=== PATIENT | female | born 1985 | race Caucasian/White ===

== ENCOUNTER 2017-02-12 13:33 | Inpatient (IN) | payer OTHER ==
--- NOTE | 2017-02-12 14:41 | C.PDOC ---
History Of Present Illness 31-year-old female, presents to the emergency department accompanied by mom ( acting as historian) with complaints of rash. Patient states she was prescribed a course of Bactrim for recent infection, that she has been taking x9 days. Yesterday, patient developed a diffuse itchy rash to back, abdomen and extremities. Patient was given Benadryl and Tylenol at 06:30 this morning, resulting in her being brought to the ED for evaluation. No vomiting, diarrhea, weakness, change in baseline mental status, change in bowel habits, symptoms , shortness of breath, or any other associated symptoms. No other complaints at this time. Time Seen by Provider: 02/12/17 14:02 Chief Complaint (Nursing): Fever History Per: Patient, Family History/Exam Limitations: no limitations Onset/Duration Of Symptoms: Days Current Symptoms Are (Timing): Still Present Severity: Moderate Past Medical History Reviewed: Historical Data, Nursing Documentation, Vital Signs Vital Signs: Last Vital Signs Temp 98.6 F 02/13/17 08:00 Pulse 92 H 02/13/17 08:00 Resp 20 02/13/17 08:00 BP 99/63 L 02/13/17 08:00 Pulse Ox 100 02/13/17 08:00 - Medical History PMH: Hypercholesterolemia Denies: Chronic Kidney Disease Family History: States: Unknown Family Hx - Social History Hx Alcohol Use: No Hx Substance Use: No - Immunization History Hx Tetanus Toxoid Vaccination: No Hx Influenza Vaccination: Yes (09/2015) Hx Pneumococcal Vaccination: No Review Of Systems Except As Marked, All Systems Reviewed And Found Negative. Constitutional: Negative for: Fever, Chills Cardiovascular: Negative for: Chest Pain, Palpitations Respiratory: Negative for: Shortness of Breath Gastrointestinal: Negative for: Nausea, Vomiting, Abdominal Pain, Diarrhea Musculoskeletal: Negative for: Back Pain Skin: Positive for: Rash Neurological: Negative for: Weakness, Numbness, Headache, Dizziness Physical Exam - Physical Exam Appears: Non-toxic, No Acute Distress Skin: Warm, Dry, Rash (DIFFUSE ERYTHEMATOUS RASH TO BACK, ABDOMEN AND EXTREMITIES. BLANCHING, MACULAR, SPARING THE SOLES AND PALMS.) Head: Atraumatic, Normacephalic Eye(s): bilateral: Normal Inspection, PERRL Nose: Normal Oral Mucosa: Moist Lips: Normal Appearing Throat: Normal (no airway compromise.) Neck: Normal ROM Cardiovascular: Rhythm Regular Respiratory: Normal Breath Sounds, No Accessory Muscle Use Extremity: Normal ROM ED Course And Treatment - Laboratory Results Result Diagrams: 02/12/17 16:04 02/12/17 16:04 O2 Sat by Pulse Oximetry: 97 Disposition - Disposition Disposition: HOSPITALIZED Disposition Time: 18:54 Condition: STABLE - Clinical Impression Clinical Impression: Pneumonia, Rash - Scribe Statement The provider has reviewed the documentation as recorded by the Ike Louise All medical record entries made by the Ike were at my direction and personally dictated by me. I have reviewed the chart and agree that the record accurately reflects my personal performance of the history, physical exam, medical decision making, and the department course for this patient. I have also personally directed, reviewed, and agree with the discharge instructions and disposition.
[2017-02-12] MEDS ORDERED: Sodium Chloride 0.9% 1,000 ML IV ONE ×2 (14:50→17:33)
--- NOTE | 2017-02-12 15:36 | RAD ---
HISTORY: fever, URI COMPARISON: No prior. FINDINGS: LUNGS: Mild hazy opacity in the left lung base. PLEURA: No significant pleural effusion identified, no pneumothorax apparent. CARDIOVASCULAR: Normal. OSSEOUS STRUCTURES: No significant abnormalities. VISUALIZED UPPER ABDOMEN: Normal. OTHER FINDINGS: None. IMPRESSION: Mild hazy opacity in the left lung base.
[2017-02-12 16:08] LABS: BASO % 0.6 % (0.0-2.0); EOS # 0.9 K/uL (0.0-0.7); HEMATOCRIT 44.2 % (34.0-47.0); LYMPH # 0.6 K/uL (1.0-4.3); LYMPH % 8.1 % (20.0-40.0); MEAN CELL VOLUME 86.4 fL (81.0-99.0); MEAN CORPUSCULAR HEMOGLOBIN 28.5 pg (27.0-31.0); MEAN CORPUSCULAR HGB CONC 32.9 g/dL (33.0-37.0); MEAN PLATELET VOLUME 7.9 fL (7.2-11.7); MONO # 0.2 K/uL (0.0-0.8); MONO % 2.4 % (0.0-10.0); PLATELET COUNT 280 K/uL (130-400); RED CELL DISTRIBUTION WIDTH 15.1 % (11.5-14.5); WHITE BLOOD COUNT 7.4 K/uL (4.8-10.8)
[2017-02-12 16:20] LABS: CHLORIDE 98 mmol/L (98-107); POTASSIUM 4.2 mmol/L (3.6-5.2); SODIUM 137 mmol/L (132-148)
[2017-02-12 16:22] LABS: BILIRUBIN,TOTAL 0.2 mg/dL (0.2-1.3); GFR AFRICAN-AMERICAN > 60
[2017-02-12 16:23] LABS: ALB/GLOB RATIO 1.1 (1.0-2.1); ALKALINE PHOSPHATASE 72 U/L (38-126); ALT/SGPT 25 U/L (9-52); AST/SGOT 23 U/L (14-36); BLOOD UREA NITROGEN 10 mg/dL (7-17); CALCIUM 8.5 mg/dl (8.6-10.4); CARBON DIOXIDE 22 mmol/L (22-30); GLUCOSE,RANDOM 124 mg/dL (65-105); TOTAL PROTEIN 7.6 g/dL (6.3-8.3)
[2017-02-12 18:20] LABS: EOSINOPHIL 14 % (0-4); NEUTROPHIL 66 % (50-75); TOTAL CELLS COUNTED 100
[2017-02-12 18:22] LABS: LARGE PLATELETS PRESENT
[2017-02-12] MEDS ORDERED: Azithromycin 500 MG in Sodium Chloride 0.9% 250 ML IVPB STA (18:40)
[2017-02-12] MEDS ORDERED: guaiFENesin 200 mg/10 ml Syrup UD PO PRN (18:53)
[2017-02-12] MEDS ORDERED: cefTRIAXone IV 1 gm in Dextros 50 ML IVPB ONE (19:04)
[2017-02-12] MEDS ORDERED: Azithromycin 500mg/250ML NS 250 ML IVPB ONE (19:04)
[2017-02-12 19:17] LABS: URINE BILIRUBIN NEGATIVE (NEGATIVE); URINE COLOR Straw (YELLOW); URINE GLUCOSE (UA) NORMAL (Normal); URINE KETONE TRACE mg/dL (NEGATIVE); URINE LEUKOCYTE ESTERASE NEG Leu/uL (Negative); URINE PROTEIN NEGATIVE (NEGATIVE); URINE UROBILINOGEN NORMAL mg/dL (0.2-1.0); WBC URINE 1 /hpf (0-5)
[2017-02-12 19:18] LABS: URINE BLOOD NEGATIVE (NEGATIVE)
[2017-02-12] MEDS: Azithromycin 500 MG in Sodium Chloride 0.9% 250 ML IVPB SCH (19:27)
[2017-02-12 19:33] LABS: VENOUS BLOOD GAS BASE EXCESS -6.3 mmol/L (0.0-2.0); VENOUS BLOOD GAS PCO2 32 mmHg (40-60); VENOUS BLOOD PH 7.36 (7.32-7.43)
[2017-02-12 20:08] LABS: LEGIONELLA AG URINE NEGATIVE (NEGATIVE)
[2017-02-12] MEDS ORDERED: Albuterol 0.083% Inhal Sol (2.5 mg/3 mL) UD ONE (20:16)
[2017-02-12] MEDS: Albuterol 0.083% Inhal Sol (2.5 mg/3 mL) UD INH SCH (20:55)
--- NOTE | 2017-02-13 00:32 | CP.PCM.HP ---
History of Present Illness - History of Present Illness History of Present Illness: Danay complain: cough and fever x 8 days HPI: 31-year-old female who has h/o cerebral palsy and is dependent on her mother for ADL, presents to the emergency department accompanied by mom (acting as historian) with complaints of rash after she was given bactrim by E.N.t specialist she c/o fever, cough, genralized weakness Patient states she was prescribed a course of Bactrim for recent infection, that she has been taking x9 days. Yesterday, patient developed a diffuse itchy rash to back, abdomen and extremities. Patient was given Benadryl and Tylenol at 06:30 this morning, resulting in her being brought to the ED for evaluation. No vomiting, diarrhea, weakness, change in baseline mental status, change in bowel habits, symptoms , shortness of breath, or any other associated symptoms. No other complaints at this time Review of Systems - Review of Systems Systems not reviewed;Unavailable: Acuity of Condition - Constitutional Constitutional: Chills, Fatigue, Fever, Lethargy - EENT Eyes: absent: As Per HPI, Blind Spots, Blurred Vision, Change in Vision, Decreased Night Vision, Diplopia, Discharge, Dry Eye, Exophthalmos, Floaters, Irritation, Itchy Eyes, Loss of Peripheral Vision, Pain, Photophobia, Requires Corrective Lenses, Sees Flashes, Spots in Vision, Tunnel Vision, Other Visual Disturbances, Loss of Vision, Other Ears: absent: As Per HPI, Decreased Hearing, Ear Discharge, Ear Pain, Tinnitus, Abnormal Hearing, Disequilibrium, Dizziness, Other Nose/Mouth/Throat: absent: As Per HPI, Epistaxis, Nasal Congestion, Nasal Discharge, Nasal Obstruction, Nasal Trauma, Nose Pain, Post Nasal Drip, Sinus Pain, Sinus Pressure, Bleeding Gums, Change in Voice, Dental Pain, Dry Mouth, Dysphagia, Halitosis, Hoarsness, Lip Swelling, Mouth Lesions, Mouth Pain, Odynophagia, Sore Throat, Throat Swelling, Tongue Swelling, Facial Pain, Neck Pain, Neck Mass, Other - Cardiovascular Cardiovascular: absent: As Per HPI, Acrocyanosis, Chest Pain, Chest Pain at Rest , Chest Pain with Activity, Claudication, Diaphoresis, Dyspnea, Dyspnea on Exertion, Edema, Irregular Heart Rhythm, Pain Radiating to Arm/Neck/Jaw, Leg Edema, Leg Ulcers, Lightheadedness, Orthopnea, Palpitations, Paroxysmal Nocturnal Dyspnea, Pedal Edema, Radiating Pain, Rapid Heart Rate, Slow Heart Rate, Syncope, Other - Respiratory Respiratory: absent: As Per HPI, Cough, Dyspnea, Hemoptysis, Dyspnea on Exertion , Wheezing, Snoring, Stridor, Pain on Inspiration, Chest Congestion, Excessive Mucous Production, Change in Mucous Color, Pain with Coughing, Other - Gastrointestinal Gastrointestinal: absent: As Per HPI, Abdominal Pain, Belching, Bloating, Change in Bowel Habits, Change in Stool Character, Coffee Ground Emesis, Constipation, Cramping, Diarrhea, Dyspepsia, Dysphagia, Early Satiety, Excessive Flatus, Fecal Incontinence, Heartburn, Hematemesis, Hematochezia, Loose Stools, Melena, Nausea, Odynophagia, Temesmus, Vomiting, Other - Musculoskeletal Musculoskeletal: Muscle Weakness, Stiffness - Neurological Neurological: absent: As Per HPI, Abnormal Gait, Abnormal Hearing, Abnormal Movements, Abnormal Speech, Behavioral Changes, Burning Sensations, Confusion, Convulsions, Disequilibrium, Dizziness, Numbness, Focal Weakness, Frequent Falls , Headaches, Lack of Coordination, Loss of Vision, Memory Loss, Paresthesias, Radicular Pain, Restless Legs, Sensory Deficit, Syncope, Tingling, Tremor, Vertigo, Weakness, Other Visual Disturbances, Other - Psychiatric Psychiatric: absent: As Per HPI, Abnormal Sleep Pattern, Anhedonia, Anxiety, Auditory Hallucinations, Behavioral Changes, Change in Appetite, Change in Libido, Confusion, Depression, Difficulty Concentrating, Hallucinations, Homicidal Ideation, Hopelessness, Irritability, Memory Loss, Mood Swings, Panic Attacks, Paranoia, Suicidal Ideation, Visual Hallucinations, Tactile Hallucinations, Other Past Patient History - Past Medical History & Family History Past Medical History?: Yes - Past Social History Smoking Status: Never Smoked - CARDIAC Hx Hypercholesterolemia: Yes - PULMONARY Hx Respiratory Disorders: No - NEUROLOGICAL Hx Neurological Disorder: No - HEENT Hx HEENT Problems: Yes Other/Comment: chronic tonsilitis - RENAL Hx Chronic Kidney Disease: No - ENDOCRINE/METABOLIC Hx Endocrine Disorders: No - HEMATOLOGICAL/ONCOLOGICAL Hx Blood Disorders: No - INTEGUMENTARY Hx Dermatological Problems: No - MUSCULOSKELETAL/RHEUMATOLOGICAL Hx Musculoskeletal Disorders: No Hx Falls: No - GASTROINTESTINAL Hx Gastrointestinal Disorders: No - GENITOURINARY/GYNECOLOGICAL Hx Genitourinary Disorders: No - PSYCHIATRIC Hx Substance Use: No Other/Comment: mental retardation - SURGICAL HISTORY Hx Surgeries: Yes Hx Tonsillectomy: Yes - ANESTHESIA Hx Anesthesia: No Hx Anesthesia Reactions: No Hx Malignant Hyperthermia: No Meds Allergies/Adverse Reactions: Allergies Allergy/AdvReac Type Severity Reaction Status Date / Time sulfamethoxazole Allergy RASH Verified 02/12/17 18:53 [From Bactrim] trimethoprim [From Bactrim] Allergy RASH Verified 02/12/17 18:53 Physical Exam - Constitutional Appears: No Acute Distress - Eye Exam Eye Exam: EOMI, Normal appearance, PERRL Pupil Exam: NORMAL ACCOMODATION, PERRL - Respiratory Exam Respiratory Exam: Clear to Auscultation Bilateral, NORMAL BREATHING PATTERN - Cardiovascular Exam Cardiovascular Exam: REGULAR RHYTHM - GI/Abdominal Exam GI & Abdominal Exam: Normal Bowel Sounds, Soft. absent: Tenderness - Neurological Exam Neurological exam: Alert - Psychiatric Exam Psychiatric exam: Normal Affect, Normal Mood - Skin Skin Exam: Rash Additional comments: extensive erythmetous maculopapular rash all over the body Results - Vital Signs Recent Vital Signs: Last Vital Signs Temp 98.8 F 02/12/17 21:13 Pulse 105 H 02/12/17 20:55 Resp 17 02/12/17 20:40 BP 99/45 L 02/12/17 20:40 Pulse Ox 98 02/12/17 20:40 - Labs Result Diagrams: 02/12/17 16:04 02/12/17 16:04 Labs: Laboratory Results - last 24 hr 02/12/17 02/12/17 02/12/17 19:00 19:11 19:20 pO2 90 H VBG pH 7.36 VBG pCO2 32 L VBG HCO3 20.0 VBG Total CO2 19.1 L VBG O2 Sat (Calc) 97.9 H VBG Base Excess -6.3 L VBG Potassium 3.6 Sodium 134.0 Chloride 106.0 Glucose 115 H Lactate 1.0 Venous Blood Potassium 3.6 Urine Color Straw Urine Clarity Clear Urine pH 5.0 Ur Specific [place] 1.005 Urine Protein Negative Urine Glucose (UA) Normal Urine Ketones Trace Urine Blood Negative Urine Nitrate Negative Urine Bilirubin Negative Urine Urobilinogen Normal Ur Leukocyte Esterase Neg Urine WBC (Auto) 1 Ur Squamous Epith Cells < 1 Infectious [place] Assay Negative Ur L.pneumophila Ag Negative Mycoplasma pneumon IgM Negative Assessment & Plan (1) Pneumonia Assessment and Plan: rule out left lower lobe pneumonia admit pt seen & examined detaild orders written Status: Acute (2) Rash Assessment and Plan: more likely reaction to bactrim Status: Acute
[2017-02-13] MEDS: Albuterol 0.083% Inhal Sol (2.5 mg/3 mL) UD INH SCH ×4 (01:19→21:46)
--- NOTE | 2017-02-13 13:19 | RAD ---
HISTORY: opacity on portable COMPARISON: 02/12/2027 TECHNIQUE: PA and lateral chest views. FINDINGS: LUNGS: Hazy opacity at left lung base persists. Likely lower lobe. Possible early pneumonia. Followup advised. No other abnormal pulmonary opacity elsewhere. PLEURA: No significant pleural effusion identified. No pneumothorax apparent. CARDIOVASCULAR: Normal. OSSEOUS STRUCTURES: No significant abnormalities. VISUALIZED UPPER ABDOMEN: Normal. OTHER FINDINGS: None. IMPRESSION: Left basilar opacity persists. Possible early lower lobe pneumonia. Followup advised.
[2017-02-13] MEDS: Azithromycin 500 MG in Sodium Chloride 0.9% 250 ML IVPB SCH (18:37)
[2017-02-14] MEDS: Albuterol 0.083% Inhal Sol (2.5 mg/3 mL) UD INH SCH ×4 (01:19→20:06)
[2017-02-14] MEDS: Patient's Own Medication - Tablet/Capusle PO SCH (09:37)
[2017-02-14 10:45] LABS: MEAN CORPUSCULAR HGB CONC 32.7 g/dL (33.0-37.0); MEAN PLATELET VOLUME 7.8 fL (7.2-11.7)
[2017-02-14 10:47] LABS: CHLORIDE 101 mmol/L (98-107); POTASSIUM 3.1 mmol/L (3.6-5.2); SODIUM 140 mmol/L (132-148)
[2017-02-14 10:50] LABS: BLOOD UREA NITROGEN 5 mg/dL (7-17); CALCIUM 8.2 mg/dl (8.6-10.4); CARBON DIOXIDE 21 mmol/L (22-30); GFR AFRICAN-AMERICAN > 60; GLUCOSE,RANDOM 106 mg/dL (65-105); HEMATOCRIT 36.8 % (34.0-47.0); MEAN CELL VOLUME 86.5 fL (81.0-99.0); MEAN CORPUSCULAR HEMOGLOBIN 28.8 pg (27.0-31.0); RED CELL DISTRIBUTION WIDTH 14.9 % (11.5-14.5); WHITE BLOOD COUNT 6.3 K/uL (4.8-10.8)
[2017-02-14] MEDS: Potassium Chloride 20 mEq ER Tab PO SCH (17:25)
[2017-02-14] MEDS: Azithromycin 500 MG in Sodium Chloride 0.9% 250 ML IVPB SCH (19:25)
--- NOTE | 2017-02-14 23:32 | CP.PCM.PN ---
Subjective - Date & Time of Evaluation Date of Evaluation: 02/13/17 - Subjective Subjective: pT seen and evaluated at bedside, extensive erythmetous rash, getting better, she is coughing and c/o headache Objective - Vital Signs/Intake and Output Vital Signs (last 24 hours): Temp Pulse Resp BP Pulse Ox 97.9 F 113 H 20 126/79 96 02/14/17 16:45 02/14/17 16:45 02/14/17 16:45 02/14/17 16:45 02/14/17 16:45 Intake and Output: 02/14/17 02/15/17 18:59 06:59 Intake Total 500 850 Balance 500 850 - Medications Medications: Current Medications Acetaminophen (Tylenol 325mg Tab) 650 mg PO Q4 PRN PRN Reason: Fever >100.4 F Last Admin: 02/14/17 01:05 Dose: 650 mg Albuterol Sulfate (Albuterol 0.083% Inhal Kendra (2.5 Mg/3 Ml) Ud) 2.5 mg INH RQ6 [facility] Last Admin: 02/14/17 20:06 Dose: 2.5 mg Diphenhydramine HCl (Benadryl) 25 mg PO TID PRN PRN Reason: Itching / Pruritus Last Admin: 02/14/17 17:25 Dose: 25 mg Guaifenesin (Robitussin) 200 mg PO Q4H PRN PRN Reason: Cough and congestion Last Admin: 02/13/17 10:58 Dose: 200 mg Home Med (Patient's Own Medication) 1 tab PO DAILY [facility] Last Admin: 02/14/17 09:37 Dose: 1 tab Azithromycin 500 mg/ Sodium (Chloride) 250 mls @ 250 mls/hr IVPB Q24H [facility] Last Admin: 02/14/17 19:25 Dose: 250 mls/hr Ceftriaxone Sodium 1 gm/ (Sodium Chloride) 100 mls @ 100 mls/hr IVPB DAILY [facility] Last Admin: 02/14/17 09:40 Dose: 100 mls/hr Influenza Virus Vaccine (Afluria) 45 mcg IM .ONCE ONE Stop: 02/15/17 10:01 Lorazepam (Ativan) 0.5 mg PO BID PRN PRN Reason: Anxiety Last Admin: 02/13/17 20:51 Dose: 0.5 mg Methylphenidate HCl (Ritalin) 10 mg PO DAILY [facility] Last Admin: 02/14/17 09:14 Dose: 10 mg Pneumococcal Polyvalent Vaccine (Pneumovax 23 Vaccine) 0.5 ml IM .ONCE ONE Stop: 02/15/17 10:01 Potassium Chloride (K-Dur 20 Meq Er Tab) 40 meq PO DAILY [facility] Stop: 02/17/17 17:15 Last Admin: 02/14/17 17:25 Dose: 40 meq Topiramate (Topamax) 50 mg PO DAILY [facility] Last Admin: 02/14/17 09:31 Dose: 50 mg - Labs Labs: 02/14/17 10:31 02/14/17 10:31 - Constitutional Appears: No Acute Distress, Agitated - Head Exam Head Exam: ATRAUMATIC, NORMAL INSPECTION, NORMOCEPHALIC - Eye Exam Eye Exam: EOMI, Normal appearance, PERRL Pupil Exam: NORMAL ACCOMODATION, PERRL - ENT Exam ENT Exam: Mucous Membranes Moist, Normal Exam - Respiratory Exam Respiratory Exam: Decreased Breath Sounds, Rales, Rhonchi - Cardiovascular Exam Cardiovascular Exam: REGULAR RHYTHM, +S1, +S2. absent: Murmur - GI/Abdominal Exam GI & Abdominal Exam: Soft, Normal Bowel Sounds. absent: Tenderness - Neurological Exam Neurological Exam: Alert, Awake, CN II-XII Intact, Normal Gait, Oriented x3 - Psychiatric Exam Psychiatric exam: Agitated, Anxious - Skin Skin Exam: Erythema, Rash Assessment and Plan (1) Pneumonia Status: Acute (2) Rash Status: Acute (3) ADHD (attention deficit hyperactivity disorder) Status: Acute
--- NOTE | 2017-02-14 23:34 | CP.PCM.PN ---
Subjective - Date & Time of Evaluation Date of Evaluation: 02/14/17 - Subjective Subjective: Pt seen & examined at bedside, is improving, rash is getting better, less cough feeling better Objective - Vital Signs/Intake and Output Vital Signs (last 24 hours): Temp Pulse Resp BP Pulse Ox 97.9 F 113 H 20 126/79 96 02/14/17 16:45 02/14/17 16:45 02/14/17 16:45 02/14/17 16:45 02/14/17 16:45 Intake and Output: 02/14/17 02/15/17 18:59 06:59 Intake Total 500 850 Balance 500 850 - Medications Medications: Current Medications Acetaminophen (Tylenol 325mg Tab) 650 mg PO Q4 PRN PRN Reason: Fever >100.4 F Last Admin: 02/14/17 01:05 Dose: 650 mg Albuterol Sulfate (Albuterol 0.083% Inhal Kendra (2.5 Mg/3 Ml) Ud) 2.5 mg INH RQ6 [facility] Last Admin: 02/14/17 20:06 Dose: 2.5 mg Diphenhydramine HCl (Benadryl) 25 mg PO TID PRN PRN Reason: Itching / Pruritus Last Admin: 02/14/17 17:25 Dose: 25 mg Guaifenesin (Robitussin) 200 mg PO Q4H PRN PRN Reason: Cough and congestion Last Admin: 02/13/17 10:58 Dose: 200 mg Home Med (Patient's Own Medication) 1 tab PO DAILY [facility] Last Admin: 02/14/17 09:37 Dose: 1 tab Azithromycin 500 mg/ Sodium (Chloride) 250 mls @ 250 mls/hr IVPB Q24H [facility] Last Admin: 02/14/17 19:25 Dose: 250 mls/hr Ceftriaxone Sodium 1 gm/ (Sodium Chloride) 100 mls @ 100 mls/hr IVPB DAILY [facility] Last Admin: 02/14/17 09:40 Dose: 100 mls/hr Influenza Virus Vaccine (Afluria) 45 mcg IM .ONCE ONE Stop: 02/15/17 10:01 Lorazepam (Ativan) 0.5 mg PO BID PRN PRN Reason: Anxiety Last Admin: 02/13/17 20:51 Dose: 0.5 mg Methylphenidate HCl (Ritalin) 10 mg PO DAILY [facility] Last Admin: 02/14/17 09:14 Dose: 10 mg Pneumococcal Polyvalent Vaccine (Pneumovax 23 Vaccine) 0.5 ml IM .ONCE ONE Stop: 02/15/17 10:01 Potassium Chloride (K-Dur 20 Meq Er Tab) 40 meq PO DAILY [facility] Stop: 02/17/17 17:15 Last Admin: 02/14/17 17:25 Dose: 40 meq Topiramate (Topamax) 50 mg PO DAILY [facility] Last Admin: 02/14/17 09:31 Dose: 50 mg - Labs Labs: 02/14/17 10:31 02/14/17 10:31 - Constitutional Appears: No Acute Distress - Head Exam Head Exam: ATRAUMATIC, NORMAL INSPECTION, NORMOCEPHALIC - Eye Exam Eye Exam: EOMI, Normal appearance, PERRL Pupil Exam: NORMAL ACCOMODATION, PERRL - Respiratory Exam Respiratory Exam: Clear to Ausculation Bilateral, NORMAL BREATHING PATTERN - Cardiovascular Exam Cardiovascular Exam: REGULAR RHYTHM, +S1, +S2. absent: Murmur - GI/Abdominal Exam GI & Abdominal Exam: Soft, Normal Bowel Sounds. absent: Tenderness Assessment and Plan (1) Pneumonia Status: Acute (2) Rash Status: Acute (3) ADHD (attention deficit hyperactivity disorder) Status: Acute
[2017-02-15] MEDS: Albuterol 0.083% Inhal Sol (2.5 mg/3 mL) UD INH SCH ×4 (01:10→19:06)
[2017-02-15] MEDS ORDERED: Pneumococcal 23-Valent Vaccine IM ONE (10:00)
[2017-02-15] MEDS ORDERED: Influenza Virus Vaccine 45 mcg/0.5 ml Syr IM ONE (10:00)
[2017-02-15] MEDS: Potassium Chloride 20 mEq ER Tab PO SCH (10:13)
[2017-02-15] MEDS: Patient's Own Medication - Tablet/Capusle PO SCH (10:13)
[2017-02-15 12:33] LABS: CHLORIDE 100 mmol/L (98-107); POTASSIUM 3.5 mmol/L (3.6-5.2); SODIUM 140 mmol/L (132-148)
[2017-02-15 12:36] LABS: BLOOD UREA NITROGEN 8 mg/dL (7-17); CARBON DIOXIDE 24 mmol/L (22-30); GFR AFRICAN-AMERICAN > 60
[2017-02-15 12:37] LABS: CALCIUM 8.2 mg/dl (8.6-10.4); GLUCOSE,RANDOM 105 mg/dL (65-105)
[2017-02-15] MEDS ORDERED: Potassium Chloride 20 mEq ER Tab PO ONE (17:15)
[2017-02-15] MEDS: Azithromycin 500 MG in Sodium Chloride 0.9% 250 ML IVPB SCH (18:34)
--- NOTE | 2017-02-15 22:22 | CP.PCM.PN ---
Subjective - Date & Time of Evaluation Date of Evaluation: 02/15/17 - Subjective Subjective: Pt seen & evaluated , she is improving, rash is getting better, less cough and states she is feeling better Objective - Vital Signs/Intake and Output Vital Signs (last 24 hours): Temp Pulse Resp BP Pulse Ox 97.8 F 100 H 20 105/69 98 02/15/17 19:03 02/15/17 15:15 02/15/17 15:15 02/15/17 15:15 02/15/17 15:15 Intake and Output: 02/15/17 02/16/17 18:59 06:59 Intake Total 820 Balance 820 - Medications Medications: Current Medications Acetaminophen (Tylenol 325mg Tab) 650 mg PO Q4 PRN PRN Reason: Fever >100.4 F Last Admin: 02/14/17 01:05 Dose: 650 mg Acetaminophen (Tylenol 325mg Tab) 650 mg PO Q6 PRN PRN Reason: Pain, moderate (4-7) Last Admin: 02/15/17 19:03 Dose: 650 mg Albuterol Sulfate (Albuterol 0.083% Inhal Kendra (2.5 Mg/3 Ml) Ud) 2.5 mg INH RQ6 [facility] Last Admin: 02/15/17 19:06 Dose: 2.5 mg Diphenhydramine HCl (Benadryl) 25 mg PO TID PRN PRN Reason: Itching / Pruritus Last Admin: 02/15/17 17:49 Dose: 25 mg Guaifenesin (Robitussin) 200 mg PO Q4H PRN PRN Reason: Cough and congestion Last Admin: 02/13/17 10:58 Dose: 200 mg Home Med (Patient's Own Medication) 1 tab PO DAILY [facility] Last Admin: 02/15/17 10:13 Dose: 1 tab Azithromycin 500 mg/ Sodium (Chloride) 250 mls @ 250 mls/hr IVPB Q24H [facility] Last Admin: 02/15/17 18:34 Dose: 250 mls/hr Ceftriaxone Sodium 1 gm/ (Sodium Chloride) 100 mls @ 100 mls/hr IVPB DAILY [facility] Last Admin: 02/15/17 10:13 Dose: 100 mls/hr Lorazepam (Ativan) 0.5 mg PO BID PRN PRN Reason: Anxiety Last Admin: 02/13/17 20:51 Dose: 0.5 mg Methylphenidate HCl (Ritalin) 10 mg PO DAILY [facility] Last Admin: 02/15/17 10:13 Dose: 10 mg Potassium Chloride (K-Dur 20 Meq Er Tab) 40 meq PO DAILY [facility] Stop: 02/17/17 17:15 Last Admin: 02/15/17 10:13 Dose: 40 meq Rosuvastatin Calcium (Crestor) 5 mg PO HS [facility] Last Admin: 02/15/17 22:14 Dose: 5 mg Topiramate (Topamax) 50 mg PO BID [facility] Last Admin: 02/15/17 18:32 Dose: 50 mg - Labs Labs: 02/14/17 10:31 02/15/17 11:58 - Constitutional Appears: No Acute Distress - Head Exam Head Exam: ATRAUMATIC, NORMAL INSPECTION, NORMOCEPHALIC - Eye Exam Eye Exam: EOMI, Normal appearance, PERRL Pupil Exam: NORMAL ACCOMODATION, PERRL - ENT Exam ENT Exam: Mucous Membranes Moist, Normal Exam - Respiratory Exam Respiratory Exam: Decreased Breath Sounds, Clear to Ausculation Bilateral - Cardiovascular Exam Cardiovascular Exam: REGULAR RHYTHM, +S1, +S2. absent: Murmur - GI/Abdominal Exam GI & Abdominal Exam: Soft, Normal Bowel Sounds. absent: Tenderness - Back Exam Back Exam: paraspinal tenderness, rash noted - Neurological Exam Neurological Exam: Alert, Awake, Oriented x3 - Psychiatric Exam Psychiatric exam: Normal Mood - Skin Skin Exam: Erythema, Rash Assessment and Plan (1) Pneumonia Status: Acute (2) Rash Status: Acute (3) ADHD (attention deficit hyperactivity disorder) Status: Acute
[2017-02-16 00:14] VITALS: O2SAT 99
[2017-02-16] MEDS: Albuterol 0.083% Inhal Sol (2.5 mg/3 mL) UD INH SCH ×3 (01:09→13:26)
[2017-02-16 07:40] VITALS: BP 99/63; RESP 18; TEMP 98.6
[2017-02-16 08:21] VITALS: PULSE 89
[2017-02-16] MEDS: Potassium Chloride 20 mEq ER Tab PO SCH (10:06)
[2017-02-16] MEDS: Patient's Own Medication - Tablet/Capusle PO SCH (10:07)
--- NOTE | 2017-02-16 12:00 | CP.PCM.PN ---
Subjective - Date & Time of Evaluation Date of Evaluation: 02/16/17 Time of Evaluation: 12:00 - Subjective Subjective: Awake, alert, no acute distress. Objective - Vital Signs/Intake and Output Vital Signs (last 24 hours): Temp Pulse Resp BP Pulse Ox 98.6 F 89 18 99/63 L 99 02/16/17 07:36 02/16/17 08:21 02/16/17 07:36 02/16/17 07:36 02/16/17 07:36 Intake and Output: 02/16/17 02/16/17 06:59 18:59 Intake Total 690 Balance 690 - Medications Medications: Current Medications Acetaminophen (Tylenol 325mg Tab) 650 mg PO Q4 PRN PRN Reason: Fever >100.4 F Last Admin: 02/14/17 01:05 Dose: 650 mg Acetaminophen (Tylenol 325mg Tab) 650 mg PO Q6 PRN PRN Reason: Pain, moderate (4-7) Last Admin: 02/15/17 19:03 Dose: 650 mg Albuterol Sulfate (Albuterol 0.083% Inhal Kendra (2.5 Mg/3 Ml) Ud) 2.5 mg INH RQ6 [facility] Last Admin: 02/16/17 08:29 Dose: 2.5 mg Diphenhydramine HCl (Benadryl) 25 mg PO TID PRN PRN Reason: Itching / Pruritus Last Admin: 02/16/17 10:09 Dose: 25 mg Guaifenesin (Robitussin) 200 mg PO Q4H PRN PRN Reason: Cough and congestion Last Admin: 02/13/17 10:58 Dose: 200 mg Home Med (Patient's Own Medication) 1 tab PO DAILY [facility] Last Admin: 02/16/17 10:07 Dose: 1 tab Azithromycin 500 mg/ Sodium (Chloride) 250 mls @ 250 mls/hr IVPB Q24H [facility] Last Admin: 02/15/17 18:34 Dose: 250 mls/hr Ceftriaxone Sodium 1 gm/ (Sodium Chloride) 100 mls @ 100 mls/hr IVPB DAILY [facility] Last Admin: 02/16/17 10:06 Dose: 100 mls/hr Lorazepam (Ativan) 0.5 mg PO BID PRN PRN Reason: Anxiety Last Admin: 02/13/17 20:51 Dose: 0.5 mg Methylphenidate HCl (Ritalin) 10 mg PO DAILY [facility] Last Admin: 02/16/17 10:06 Dose: 10 mg Potassium Chloride (K-Dur 20 Meq Er Tab) 40 meq PO DAILY [facility] Stop: 02/17/17 17:15 Last Admin: 02/16/17 10:06 Dose: 40 meq Rosuvastatin Calcium (Crestor) 5 mg PO HS [facility] Last Admin: 02/15/17 22:14 Dose: 5 mg Topiramate (Topamax) 50 mg PO BID [facility] Last Admin: 02/16/17 10:06 Dose: 50 mg - Labs Labs: 02/14/17 10:31 02/15/17 11:58 Assessment and Plan - Assessment and Plan (Free Text) Assessment: Patient is seen and examined. awake, alert, ambulating well, oxygen saturation 99% after ambulation. No sob or chest pains. D/W DR Henderson. discharge plan for home today on amoxicillin 500mg po q8h for 1 week. To f/u with PMD in 1 week. Mother at the bedside, verbalized understanding.
--- NOTE | 2017-02-17 21:10 | CP.PCM.DIS ---
Provider - Provider Date of Admission: 02/12/17 18:54 Attending physician: Alec Henderson MD Diagnosis - Discharge Diagnosis (1) Pneumonia Status: Acute (2) Rash Status: Acute (3) ADHD (attention deficit hyperactivity disorder) Status: Acute Hospital Course - Lab Results Lab Results: Micro Results 02/12/17 21:15 Blood-Venous Blood Culture - Preliminary NO GROWTH AFTER 4 DAYS 02/12/17 21:15 Blood-Venous Blood Culture - Preliminary NO GROWTH AFTER 4 DAYS 02/12/17 19:00 Urine,Clean Catch Urine Culture - Final No Growth (<1,000 CFU/ML) Most Recent Lab Values WBC 6.3 K/uL (4.8-10.8) 02/14/17 10:31 RBC 4.25 Mil/uL (3.80-5.20) 02/14/17 10:31 Hgb 12.0 g/dL (11.0-16.0) D 02/14/17 10:31 Hct 36.8 % (34.0-47.0) 02/14/17 10:31 MCV 86.5 fL (81.0-99.0) 02/14/17 10:31 MCH 28.8 pg (27.0-31.0) 02/14/17 10:31 MCHC 32.7 g/dL (33.0-37.0) L 02/14/17 10:31 RDW 14.9 % (11.5-14.5) H 02/14/17 10:31 Plt Count 234 K/uL (130-400) 02/14/17 10:31 MPV 7.8 fL (7.2-11.7) 02/14/17 10:31 Neut % (Auto) 76.9 % (50.0-75.0) H 02/12/17 16:04 Lymph % (Auto) 8.1 % (20.0-40.0) L 02/12/17 16:04 [place] % (Auto) 2.4 % (0.0-10.0) 02/12/17 16:04 Eos % (Auto) 12.0 % (0.0-4.0) H 02/12/17 16:04 Baso % (Auto) 0.6 % (0.0-2.0) 02/12/17 16:04 Neut # 5.7 K/uL (1.8-7.0) 02/12/17 16:04 Lymph # 0.6 K/uL (1.0-4.3) L 02/12/17 16:04 [place] # 0.2 K/uL (0.0-0.8) 02/12/17 16:04 Eos # 0.9 K/uL (0.0-0.7) H 02/12/17 16:04 Baso # 0.0 K/uL (0.0-0.2) 02/12/17 16:04 Neutrophils % (Manual) 66 % (50-75) 02/12/17 16:04 Band Neutrophils % 10 % (0-2) H 02/12/17 16:04 Lymphocytes % (Manual) 9 % (20-40) L 02/12/17 16:04 Monocytes % (Manual) 1 % (0-10) 02/12/17 16:04 Eosinophils % (Manual) 14 % (0-4) H 02/12/17 16:04 Platelet Estimate Normal (NORMAL) 02/12/17 16:04 Large Platelets Present 02/12/17 16:04 Hypochromasia (manual) Slight 02/12/17 16:04 Microcytosis (manual) Slight 02/12/17 16:04 pO2 90 mm/Hg (30-55) H 02/12/17 19:00 VBG pH 7.36 (7.32-7.43) 02/12/17 19:00 VBG pCO2 32 mmHg (40-60) L 02/12/17 19:00 VBG HCO3 20.0 mmol/L 02/12/17 19:00 VBG Total CO2 19.1 mmol/L (22-28) L 02/12/17 19:00 VBG O2 Sat (Calc) 97.9 % (40-65) H 02/12/17 19:00 VBG Base Excess -6.3 mmol/L (0.0-2.0) L 02/12/17 19:00 VBG Potassium 3.6 mmol/L (3.6-5.2) 02/12/17 19:00 Sodium 134.0 mmol/l (132-148) 02/12/17 19:00 Chloride 106.0 mmol/L (98-107) 02/12/17 19:00 Glucose 115 mg/dl (65-105) H 02/12/17 19:00 Lactate 1.0 mmol/L (0.7-2.1) 02/12/17 19:00 Sodium 140 mmol/L (132-148) 02/15/17 11:58 Potassium 3.5 mmol/L (3.6-5.2) L 02/15/17 11:58 Chloride 100 mmol/L (98-107) 02/15/17 11:58 Carbon Dioxide 24 mmol/L (22-30) 02/15/17 11:58 Anion Gap 20 (10-20) 02/15/17 11:58 BUN 8 mg/dL (7-17) 02/15/17 11:58 Creatinine 0.6 MG/DL (0.7-1.2) L 02/15/17 11:58 Est GFR ( Amer) > 60 02/15/17 11:58 Est GFR (Non-Af Amer) > 60 02/15/17 11:58 Random Glucose 105 mg/dL (65-105) 02/15/17 11:58 Calcium 8.2 mg/dl (8.6-10.4) L 02/15/17 11:58 Total Bilirubin 0.2 mg/dL (0.2-1.3) 02/12/17 16:04 AST 23 U/L (14-36) 02/12/17 16:04 ALT 25 U/L (9-52) 02/12/17 16:04 Alkaline Phosphatase 72 U/L (38-126) 02/12/17 16:04 Total Protein 7.6 g/dL (6.3-8.3) 02/12/17 16:04 Albumin 4.0 g/dL (3.5-5.0) 02/12/17 16:04 Globulin 3.6 gm/dL (2.2-3.9) 02/12/17 16:04 Albumin/Globulin Ratio 1.1 (1.0-2.1) 02/12/17 16:04 Venous Blood Potassium 3.6 mmol/L (3.6-5.2) 02/12/17 19:00 Urine Color Straw (YELLOW) 02/12/17 19:11 Urine Clarity Clear (Clear) 02/12/17 19:11 Urine pH 5.0 (5.0-8.0) 02/12/17 19:11 Ur Specific [place] 1.005 (1.003-1.030) 02/12/17 19:11 Urine Protein Negative mg/dL (NEGATIVE) 02/12/17 19:11 Urine Glucose (UA) Normal mg/dL (Normal) 02/12/17 19:11 Urine Ketones Trace mg/dL (NEGATIVE) 02/12/17 19:11 Urine Blood Negative (NEGATIVE) 02/12/17 19:11 Urine Nitrate Negative (NEGATIVE) 02/12/17 19:11 Urine Bilirubin Negative (NEGATIVE) 02/12/17 19:11 Urine Urobilinogen Normal mg/dL (0.2-1.0) 02/12/17 19:11 Ur Leukocyte Esterase Neg Mati/uL (Negative) 02/12/17 19:11 Urine WBC (Auto) 1 /hpf (0-5) 02/12/17 19:11 Ur Squamous Epith Cells < 1 /hpf (0-5) 02/12/17 19:11 Infectious [place] Assay Negative (NEGATIVE) 02/12/17 19:20 Influenza Typ A,B (EIA) Negative for flu a/b (NEGATIVE) 02/12/17 16:06 Ur L.pneumophila Ag Negative (NEGATIVE) 02/12/17 19:20 Mycoplasma pneumon IgM Negative (NEGATIVE) 02/12/17 19:20 Grp A Beta Strep Ag Negative (NEGATIVE) 02/12/17 16:06 - Hospital Course Hospital Course: Pt seen and evaluated, is feeling better, pnemonia resolved, is for discharge today Discharge Exam - Head Exam Head Exam: ATRAUMATIC, NORMAL INSPECTION, NORMOCEPHALIC - Eye Exam Eye Exam: Normal appearance - ENT Exam ENT Exam: Mucous Membranes Moist - Respiratory Exam Respiratory Exam: Clear to PA & Lateral, NORMAL BREATHING PATTERN - Cardiovascular Exam Cardiovascular Exam: REGULAR RHYTHM, +S1, +S2 - GI/Abdominal Exam GI & Abdominal Exam: Normal Bowel Sounds Discharge Plan - Discharge Medications Prescriptions: Amoxicillin [Amoxil 500 mg Cap] 500 mg PO Q8H #21 cap - Follow Up Plan Condition: STABLE Disposition: HOME/ ROUTINE Instructions: Amoxicillin (By mouth), Acute Rash (GEN), Pneumonia (DC) Referrals: Abraham Padilla MD [Staff Provider] -
== END 2017-02-16 14:12 | disposition home or self-care (01) | DRG 195 ==
LOC: C.ER 13:33 → C.9E 18:54 → C.3T 20:50
PROVIDERS: ADMIT Internal Medicine; ATTEND Internal Medicine
DX: J18.9 Pneumonia, unspecified organism (principal); R21 Rash and other nonspecific skin eruption; G80.9 Cerebral palsy, unspecified; F90.9 Attention-deficit hyperactivity disorder, unspecified type; E78.00 Pure hypercholesterolemia, unspecified; F79 Unspecified intellectual disabilities